=== PATIENT | male | born 1965 ===

== ENCOUNTER → 2023-06-03 11:17 | Outpatient (CLI) | payer BC, SELFPAY ==
--- NOTE | ~2023-06-03 | XR_ITS ---
EXAMINATION: XR lumbar spine 6V w bending DATE: 06/03/2023 11:58 INDICATION: Low back pain. TECHNIQUE: 7 views of lumbar spine including standing views and flexion and extension views were obta ined. COMPARISON: None. FINDINGS: Bone alignment is normal. Vertebral body heights and intervertebral disc heights are normal . There are endplate osteophytes at most levels. There is no abnormal motion with flexion or extensio n. There is multilevel facet joint osteoarthritis, severe on the left at L4-L5 and bilaterally at L5- S1. IMPRESSION: 1. Mild lumbar spondylosis. Reviewed, dictated and finalized at location E. [employer] IMPRESSION: 1. Mild lumbar spondylosis.
== END ==
DX: M43.06 Spondylolysis, lumbar region (principal)
CPT/HCPCS: 72114